=== PATIENT | female | born 1955 | race Caucasian/White ===

== ENCOUNTER → 2021-01-05 | Outpatient (CLI) | payer BC | LOC: HEART 5 07:51 | DX: R07.9 Chest pain, unspecified (principal) | CPT/HCPCS: 78452; A9502; J2785 ==

== ENCOUNTER → 2021-06-26 | Outpatient (CLI) | payer BC ==
[2021-06-26 09:45] LABS: HEMOGLOBIN 12.9 gm/dl (12.3-15.3); RED BLOOD COUNT 4.69 M/UL (4.00-5.10); WHITE BLOOD COUNT 10.3 K/UL (4.5-11.0)
[2021-06-26 10:04] LABS: BUN/CREATININE RATIO 11 (0-10)
== END ==
LOC: LAB 09:25
PROVIDERS: Family Medicine
DX: E11.9 Type 2 diabetes mellitus without complications (principal); E55.9 Vitamin D deficiency, unspecified; I10 Essential (primary) hypertension; E78.5 Hyperlipidemia, unspecified; R53.83 Other fatigue
CPT/HCPCS: 36415; 80053; 80061; 82043; 84439; 84443; 84681; 85027